=== PATIENT | male | born 1965 | race Caucasian/White ===

== ENCOUNTER 2020-11-05 05:12 | Emergency (ER) | payer MEDICARE ==
[~2020-11-05] VITALS: Ht 195.6 cm; Wt 138.7 kg
[2020-11-05] MEDS ORDERED: HYDROcodone/APAP 5/325 TABLET ONE (05:43)
[2020-11-05] MEDS ORDERED: DIPH,PERTUSS(ACELL),TET VAC/PF 0.5 ML IM-VACC ONE ×2 (05:53→06:00)
[2020-11-05] MEDS ORDERED: HYDROcodone/APAP 5/325 TABLET PO ONE (06:00)
[2020-11-05 06:18] LABS: BASOPHILS % (AUTO) 1 % (0-1); EOSINOPHILS % (AUTO) 2 % (1-7); LYMPHOCYTES % (AUTO) 23 % (22-44); MEAN CORPUSCULAR HEMOGLOBIN 34.9 pg (27.5-34.5); MEAN CORPUSCULAR HGB CONC 35.6 g/dL (33.2-36.2); MEAN PLATELET VOLUME 6.4 fL (7.4-10.4); MONOCYTES % (AUTO) 8 % (2-9); NEUTROPHILS % (AUTO) 67 % (42-75); PLATELET COUNT 230 x10^3/uL (130-400); RED BLOOD COUNT 4.16 x10^6/uL (4.38-5.82)
[2020-11-05 06:24] LABS: MD NO
[2020-11-05 06:27] LABS: ALBUMIN 3.7 g/dL (3.4-5.0); ANION GAP 4 mmol/L (5-15); CALCIUM 8.2 mg/dL (8.5-10.1); CHLORIDE 109 mmol/L (98-107)
[2020-11-05 06:29] LABS: CREATININE 1.01 mg/dL (0.7-1.3)
[2020-11-05] MEDS ORDERED: VANCOMYCIN 2,500 MG in SODIUM CHLORIDE 0.9% 500 ML IV ONE (06:30)
[2020-11-05] MEDS ORDERED: VANCOMYCIN PER PHARMACY MC PRN (06:30)
--- NOTE | 2020-11-05 06:48 | NUR ---
[facility] stated no blood cultures before abx
--- NOTE | 2020-11-05 06:52 | NUR ---
report from [place].
[2020-11-05] MEDS ORDERED: BACITRACIN ZINC OINT 500U/GM, 0.9 GM ONE (06:53)
--- NOTE | 2020-11-05 07:02 | NUR ---
KIERANO INFUSING. CALL LIGHT IN REACH.
[2020-11-05 09:18] VITALS: BP 145/82
--- NOTE | 2020-11-05 09:19 | NUR ---
Patient given discharge instructions and they have confirmed that they understand the instructions. Patient ambulatory with steady gait.
== END 2020-11-05 09:20 ==
LOC: ED 05:42
DX: L02.611 Cutaneous abscess of right foot (principal); L03.031 Cellulitis of right toe
CPT/HCPCS: 10060; 36415; 73660; 80048; 82040; 85025; 90471; 90715; 96365; 96366; 99284; J3370; J7040